=== PATIENT | male | born 1990 | race Caucasian/White ===

== ENCOUNTER 2019-12-28 16:16 | Emergency (ER) | payer MEDICAID ==
[~2019-12-28] VITALS: Ht 175.3 cm; Wt 127.3 kg
[2019-12-28] MEDS ORDERED: ketorolac tromethamine 15mg/ml inj. IM ONE (17:20)
[2019-12-28] MEDS ORDERED: orphenadrine citrate 60mg/2ml inj. IM ONE (17:20)
--- NOTE | 2019-12-28 17:35 | NUR ---
medicated for pain. states his roommate can give him a ride home. To xray in as ordered. Pt aware he needs to give a urine sample and he is drinking water.
[2019-12-28 17:42] LABS: BASOPHILS # (AUTO) 0.1 X10'3 (0-0.2); BASOPHILS % (AUTO) 0.5 % (0-1); EOSINOPHILS # (AUTO) 0.1 X10'3 (0-0.9); EOSINOPHILS % (AUTO) 1.2 % (0-6); HEMATOCRIT 44.2 % (42.0-52.0); HEMOGLOBIN 14.4 g/dl (14.0-17.9); LYMPHOCYTES # (AUTO) 2.2 X10'3 (1.1-4.8); LYMPHOCYTES % (AUTO) 22.2 % (21-51); MEAN CORPUSCULAR HEMOGLOBIN 26.9 PG (27.0-31.0); MEAN CORPUSCULAR HGB CONC 32.6 g/dL (33.0-36.5); MEAN CORPUSCULAR VOLUME 82.5 FL (78-98); MEAN PLATELET VOLUME 7.2 FL (7.4-10.4); MONOCYTES # (AUTO) 0.5 X10'3 (0-0.9); MONOCYTES % (AUTO) 5.3 % (2-12); NEUTROPHILS # (AUTO) 7.1 X10'3 (1.8-7.7); NEUTROPHILS % (AUTO) 70.8 % (42-75); PLATELET COUNT 336 X10'3 (140-440); RED BLOOD COUNT 5.36 X10'6 (4.70-6.10)
[2019-12-28 17:56] LABS: ALANINE AMINOTRANSFERASE 28 U/L (12-78); ALBUMIN 3.9 G/DL (3.4-5.0); ALBUMIN/GLOBULIN RATIO 1.1 (1.1-1.5); ALKALINE PHOSPHATASE 66 IU/L (46-116); ANION GAP 9 (8-16); ASPARTATE AMINO TRANSFERASE 27 U/L (10-37); BILIRUBIN,TOTAL 0.3 MG/DL (0.1-1.0); BLOOD UREA NITROGEN 15 MG/DL (7-18); BUN/CREATININE RATIO 16.9 (5.4-32.0); CHLORIDE 107 MMOL/L (99-107); CREATININE 0.89 MG/DL (0.60-1.10); GLUCOSE 86 MG/DL (70-104); POTASSIUM 4.1 MMOL/L (3.5-5.1); SODIUM 143 MMOL/L (135-145); TOTAL CARBON DIOXIDE 27.3 MMOL/L (24-32); TOTAL PROTEIN 7.4 G/DL (6.4-8.2); eGFR > 90 ML/MIN
--- NOTE | 2019-12-28 18:37 | NUR ---
report given to Ammy ROBERTS
--- NOTE | 2019-12-28 19:07 | NUR ---
PT PROVIDING UA. HE IS CHANGING INTO GOWN. MRI CHECK LIST BEING WORKED ON. PT TO GET AN MRI TONIGHT.
[2019-12-28 19:25] LABS: CLARITY,URINE CLEAR (Clear); COLOR,URINE YELLOW (Yellow); GLUCOSE, URINE NEGATIVE (Neg); KETONES,URINE NEGATIVE (Neg); LEUKOCYTE ESTERASE ,URINE NEGATIVE (Neg); NITRITES, URINE NEGATIVE (Neg); OCCULT BLOOD,URINE NEGATIVE (Neg); PROTEIN,URINE NEGATIVE (Neg); UROBILINOGEN,URINE 0.2 E.U/dL (0.2-1.0)
[2019-12-28 19:26] LABS: UA COLLECTION TYPE CLN CATCH MIDSTREAM
[2019-12-28 19:32] LABS: URINE AMPHETAMINE SCREEN NEGATIVE (Neg); URINE BARBITUATE SCREEN NEGATIVE (Neg); URINE BENZODIAZEPINES SCREEN NEGATIVE (Neg); URINE CANNABINOID SCREEN NEGATIVE (Neg); URINE COCAINE SCREEN NEGATIVE (Neg); URINE METHADONE SCREEN NEGATIVE (Neg); URINE OPIATE SCREEN NEGATIVE (Neg); URINE PHENCYCLIDINE SCREEN NEGATIVE (Neg)
--- NOTE | 2019-12-28 22:19 | NUR ---
altitude chamber technician from [facility] is coming here to measure pt
--- NOTE | 2019-12-28 23:03 | NUR ---
ems here to citrus picker pt to take to [facility] for an MRI d/t size of pt. Pt had an IV placed d/t MRI with contrast. IV flushes and positive blood return.
[2019-12-28] MEDS ORDERED: GABA-530 PO (23:43)
[2019-12-29 00:33] VITALS: BP 159/109
== END 2019-12-29 01:18 | disposition home or self-care (01) ==
LOC: ER 16:17
DX: M54.32 Sciatica, left side (principal); R53.1 Weakness; R20.0 Anesthesia of skin; M25.552 Pain in left hip; G89.29 Other chronic pain; Z79.899 Other long term (current) drug therapy
CPT/HCPCS: 36415; 73502; 80053; 80305; 81003; 85025; 96372; 99284; J1885; J2360